=== PATIENT | male | born 1965 | race Caucasian/White ===

== ENCOUNTER 2023-07-18 08:08 | Emergency (ER) | payer OTHER, SELFPAY ==
[2023-07-18 08:17] VITALS: BP 149/105; PULSE 86; RESP 22; TEMP 37.8; O2SAT 97; BMI 33.4
--- NOTE | 2023-07-18 08:41 | CRLHL7_ITS ---
For Patients: As a result of the Cures Act, medical imaging exams and procedure reports are released immediately into your electronic medical record. You may view this report before your referring provider. If you have questions, please contact your health care provider. Indication: Cough and fever Comparison: None available. Technique: PA and lateral views of the chest Findings: There is no focal consolidation, effusion, or pneumothorax. The cardiomediastinal silhouette is within normal limits. The bony thorax is grossly intact. Impression: No acute cardiopulmonary abnormality. Dictated by Pipe Frankel MD @ 07/18/2023 9:45:45 AM (Electronically Signed)
--- NOTE | 2023-07-18 08:41 | CRLHL7_ITS ---
For Patients: As a result of the 21st Century Cures Act, medical imaging exams and procedure reports are released immediately into your electronic medical record. You may view this report before your referring provider. If you have questions, please contact your health care provider. INDICATION: Right-sided abdominal pain for 2 weeks with a history of Crohn`s disease COMPARISON: 01/30/2014 TECHNIQUE: CT of the abdomen and pelvis after the administration of intravenous contrast. Multiplanar axial, coronal, and sagittal reformats were reconstructed. Contrast: 128 mL Isovue 370 intravenously. Oral contrast was not administered. FINDINGS: Lung bases: Normal. Liver: Normal. No masses. Normal vasculature. Gallbladder and biliary tree: Normal gallbladder. No biliary duct dilation. Pancreas: Normal. Spleen: Globular spleen which is borderline enlarged and measures 15 cm in length. Spleen length is previously 12 cm. Adrenal glands: Normal. No nodules. Kidneys and bladder: Normal size and position. There is a 1.6 cm exophytic hyperdense renal mass arising from the right lower pole. This was previously present but much smaller, 0.7 cm. No calculi. No urinary tract dilation. Circumaortic left renal vein, a normal variant. The urinary bladder is normal. GI: Ileocolonic anastomosis is unremarkable. No dilated segments. No abnormal bowel wall thickening or hyperenhancement. Small stool burden. The appendix is surgically absent. Vessels: Aorta and major branches, including the mesenteric vessels: Patent. Normal caliber. No atherosclerotic plaques. IVC and tributaries: Normal. Mesenteric and portal veins: Normal. Peritoneum: No free fluid. Lymph nodes: Enlarged periportal lymph nodes. Lymph node between the IVC and main portal vein measures 1.6 x 2.8 cm. Another large lymph node between the bifurcation of the hepatic and splenic artery measures 2.6 x 1.4 cm.. Pelvis: Physiologic appearance of the pelvic organs. Bones: No fractures. No focal bone lesions. Normal for age. IMPRESSION: 1. No CT findings of active Crohn`s disease. 2. Borderline splenomegaly and nonspecific periportal adenopathy. 3. Enlarging 1.6 cm exophytic hyperdense right renal lesion. Could be a hyperdense cyst. This could be confirmed with ultrasound or renal mass protocol CT/MR. Please note that all CT scans at this facility use dose modulation, iterative reconstruction, and/or weight-based dosing when appropriate to reduce radiation dose to as low as reasonably achievable. Dictated by Destiny Rainey MD @ 07/18/2023 9:48:32 AM (Electronically Signed)
--- NOTE | 2023-07-18 08:43 | ED.GENADULT ---
HPI - General Adult General Time Seen by Provider: 08:43 Date Seen: 07/18/23 Chief complaint: Fever Stated complaint: fever,body aches x 2 weeks Time Seen by Provider: 07/18/23 08:21 History of Present Illness HPI narrative: This is a pleasant 57-year-old male with a history of Crohn's disease, previous surgical history including partial bowel resection for stricture/obstruction, temporary ileostomy with takedown, previous appendectomy, on chronic immunomodulatory therapy with Remicade. He presents to the ER today with his . He is here with symptoms of fever, chills, sweats, body aches that have been ongoing for about 14-17 days. Symptoms initially started along with some cough, dry mouth, mild sore throat. Cough has been persistent over the past 14 days. Largely productive of clear sputum or nonproductive. No. On sputum or hemoptysis. He is not short of breath. No chest pain. Also for about the past 2 weeks he has had some fairly bothersome right flank pain. No other definite symptoms with this. His was concerned the flank pain might indicate a recurrent bowel obstruction but he is not really having vomiting and bowel movements have been normal. Normal stools. Nonbloody. No diarrhea. No melena. He does not have much anterior abdominal pain he is not bloated. He has not had any rash or shingles. The patient notes that his son also was sick with cough and flank pain about 3 weeks ago. His son's illness ended spontaneously after about a week. The patient thought he would probably caught a virus from his son so has been trying to wait for his illness to get better. Since the cough was ongoing, perhaps slightly worsening, the fever and chills and sweats or ongoing, his insisted that he either make a doctor's appointment or come to the ER today. He chose to come to the ER. He has been doing at home COVID tests and they have been negative. Related Data Home Medications Medication Instructions Recorded Confirmed Remicade 07/18/23 allopurinol 300 mg tablet mg PO 07/18/23 Allergies Allergy/AdvReac Type Severity Reaction Status Date / Time No Known Drug Allergies Allergy Verified 07/18/23 09:29 PFSH PFS Social History Smoking Status: Unknown if ever smoked Non-prescribed substance use: denies use Exam Narrative: Exam Narrative: Constitutional: Appears well-developed and well-nourished. Alert. Conversant. Non toxic. His skin is somewhat sweaty from fever but not diaphoretic. No pallor cyanosis. HENT: Head: Atraumatic. Nose: Nose normal. Mouth/Throat: Oral mucosa is clear and moist. no trismus. Pharynx normal. Tonsils symmetric. No tonsillar enlargement, erythema, or exudate. Eyes: Conjunctivae normal. EOM normal. Pupils equal, round, and reactive to light. No scleral icterus. Neck: Normal range of motion. Neck supple. No tracheal deviation present. Cardiovascular: Normal rate, regular rhythm. No gallop. No friction rub. No murmur heard. Symmetric radial and DP artery pulses Pulmonary/Chest: Effort normal. No stridor. No respiratory distress. No wheezes. No rales. No rhonchi . No tenderness. Abdominal: Soft. Bowel sounds normal. No distension. No mass. No definite HSM. No pulsatile mass. No tenderness. No rebound. No guarding. No CVA tenderness. Musculoskeletal: RUE: Normal range of motion. No tenderness. No deformity LUE: Normal range of motion. No tenderness. No deformity RLE: Normal range of motion. No edema. No tenderness. No deformity LLE: Normal range of motion. No edema. No tenderness. No deformity Lymph: No cervical or supraclavicular adenopathy. Neurological: Alert and oriented to person, place, and time. Normal strength. CN II-VII intact. No sensory deficit. GCS eye subscore is 4. GCS verbal subscore is 5. GCS motor subscore is 6. Normal coordination Skin: Skin is warm and dry. No rash noted. No pallor. Normal capillary refill. Psychiatric: Normal mood. Normal affect. Const: Vital Signs, click to edit/add: Vital Signs - 24 hr 07/18/23 08:17 07/18/23 09:54 Temperature 100.1 F H 97.3 F L Pulse Rate [Right Pulse Oximeter] 86 73 Respiratory Rate 22 18 Blood Pressure [Ri ght Upper Arm] 149/105 H 144/92 H Pulse Oximetry 97 96 Oxygen Delivery Me thod Room Air Room Air Course Reevaluation(s) Reevaluation #1: recehck. VSS. sitting up. d/w patient and his . he feels stable to go home Vital Signs Vital signs: Initial Vital Signs Temperature 100.1 F H 07/18/23 08:17 Temperature Source Temporal Artery Scan 07/18/23 08:17 Pulse Rate 86 07/18/23 08:17 Respiratory Rate 22 07/18/23 08:17 Blood Pressure 149/105 H 07/18/23 08:17 Blood Pressure Mean 119 H 07/18/23 08:17 Blood Pressure Position Sitting 07/18/23 08:17 Pulse Oximetry 97 07/18/23 08:17 Oxygen Delivery Method Room Air 07/18/23 08:17 Vital Signs Temperature 100.1 F H 07/18/23 08:17 Pulse Rate 86 07/18/23 08:17 Respiratory Rate 22 07/18/23 08:17 Blood Pressure 149/105 H 07/18/23 08:17 Pulse Oximetry 97 07/18/23 08:17 Oxygen Delivery Method Room Air 07/18/23 08:17 Temperature 97.3 F L 07/18/23 09:54 Pulse Rate 73 07/18/23 09:54 Respiratory Rate 18 07/18/23 09:54 Blood Pressure 144/92 H 07/18/23 09:54 Pulse Oximetry 96 07/18/23 09:54 Oxygen Delivery Method Room Air 07/18/23 09:54 Medical Decision Making MDM Narrative Medical decision making narrative: This is a 57-year-old male with history of Crohn's disease, on immunomodulatory therapy with Humira who presents to the ER today with a 10-17 day history of fever, chills, body aches, and sweats. Also associated with cough (without shortness of breath or chest pain) and right flank pain (without abdominal distention, vomiting, diarrhea, or definite urinary symptoms). Differential is broad. In terms of cough he has had negative at home COVID test. COVID, influenza, RSV PCR is negative today. Chest x-ray negative for pneumonia. He is not hypoxic, having significant cough here in the ER, or having any respiratory distress. Lung sounds are clear. No evidence for CHF for COPD/asthma. In terms of his flank pain CT scan shows no evidence for obstructing kidney stone, Crohn's flare, colitis, diverticulitis, structural abnormality of or his liver. CT scan does show subtle splenomegaly. CT also shows a exophytic lesion on the right kidney. Discussed with the patient and his . They will follow-up for outpatient MRI for further characterization, urinalysis is normal. CBC shows mild leukopenia with a lymphocyte predominance with good fit with viral syndrome. Nasopharyngeal viral PCRs are negative here in the ER today. LFTs are mildly abnormal and he does have splenomegaly on CT, which raises concern for a mononucleosis syndrome. Monospot is negative. Will add on viral hepatitis serologies. No classic rash to suggest viral syndrome. No evidence for OM on exam. No pharyngitis. Differential for fever included cellulitis, septic arthritis, osteomyelitis but these are not seen on exam. Blood cultures are pending over patient is clinically nontoxic. Overall low suspicion for bacteremia or sepsis. The patient is smiling, alert, sitting up, and non-toxic, so I do not think sepsis or meningitis is present. At this point I do not think he needs empiric antibiotics or hospitalization. This fever is likely due to viral illness. Plan of care includes supportive care with antipyretics, fluids, and watchful waiting at home. Will need follow-up with primary care or in the ER within 2-4 days for follow-up lab test including LFTs, CBC, pending the results of his hepatitis-B serologies and blood cultures. Instructions to return for recheck in 2-4 days if not improved, or immediately if worsening fever, decreasing oral intake, lethargy, irritability, seizure, or any other concerns. Lab Data Labs: Lab Results 07/18/23 07/18/23 07/18/23 Range/Units 08:18 09:00 09:37 WBC 4.17 L (4.50-11.00) K/uL RBC 4.50 (4.30-5.90) m/uL Hgb 13.9 (13.5-17.5) gm/dL Hct 40.7 (37.0-53.0) % MCV 90 (80-100) fL MCH 31 (26-34) pg MCHC 34 (32-36) gm/dL RDW Coeff of Polina 12.9 (11.5-15.5) % Plt Count 146 (140-440) K/uL Neut % (Auto) 35.5 L (42.0-72.0) % Lymph % (Auto) 56.1 H (20-44) % [place] % (Auto) 7.2 (0.0-11.0) % Eos % (Auto) 0.2 (0.0-7.0) % Baso % (Auto) 0.5 (0.0-3.0) % Neut # (Auto) 1.50 L (1.7-7.0) K/uL Lymph # (Auto) 2.30 (0.90-2.90) K/uL [place] # (Auto) 0.30 (0.00-0.90) K/UL Eos # (Auto) 0.00 (0.00-0.50) K/uL Baso # (Auto) 0.00 (0.00-0.30) K/uL Abs Immat Gran (auto) 0.00 (0.00-0.30) K/uL Imm/Tot Granulo (auto) 0.5 % Sodium 131 L (135-149) mmol/L Potassium 4.7 (3.6-5.1) mmol/L Chloride 98 (96-114) mmol/L Carbon Dioxide 25 (20-32) mmol/L Anion Gap 8 (7-15) mEq/L BUN 12 (7-30) mg/dL Creatinine 0.7 (0.5-1.5) mg/dL Estimated Creat Clear 137.00 Estimated GFR 108 ml/min Glucose 210 H (60-115) mg/dL Lactate 1.6 (0.5-1.9) mmol/L Calcium 8.9 (8.4-10.6) mg/dL Total Bilirubin 1.5 (0.1-1.5) mg/dL AST 134 H (12-35) U/L ALT 128 H (4-50) U/L Alkaline Phosphatase 162 H (40-150) U/L Total Protein 7.3 (6.0-8.3) g/dL Albumin 4.1 (3.3-5.0) g/dL Lipase 165 (23-300) U/L Urine Color (Yellow) Urine Appearance (Clear) Urine pH (5.0-8.5) Ur Specific [place] (1.000-1.030) Urine Protein (Negative) Urine Glucose (UA) (Negative) Urine Ketones (Negative) Urine Blood (Negative) Urine Nitrite (Negative) Urine Bilirubin (Negative) Urine Urobilinogen (0.2-1.0) Ur Leukocyte Esterase (Negative) Urine RBC (0-2) Urine WBC (0-5) Ur Squamous Epith Cells (None-Few) Urine Bacteria (None) SARS-CoV-2 (PCR) Negative SARS-CoV-2 (Negative) Hep Bs Antigen Negative (Negative) Hepatitis C Antibody Negative (Negative) Monoscreen Negative (Negative) Influenza Type A (PCR) Negative PCR FLU A (Negative) Influenza Type B (PCR) Negative PCR FLU B (Negative) RSV (PCR) Negative PCR RSV (Negative) Lab Acknowledgement Test Added 07/18/23 07/18/23 Range/Units 10:35 11:40 WBC (4.50-11.00) K/uL RBC (4.30-5.90) m/uL Hgb (13.5-17.5) gm/dL Hct (37.0-53.0) % MCV (80-100) fL MCH (26-34) pg MCHC (32-36) gm/dL RDW Coeff of Polina (11.5-15.5) % Plt Count (140-440) K/uL Neut % (Auto) (42.0-72.0) % Lymph % (Auto) (20-44) % [place] % (Auto) (0.0-11.0) % Eos % (Auto) (0.0-7.0) % Baso % (Auto) (0.0-3.0) % Neut # (Auto) (1.7-7.0) K/uL Lymph # (Auto) (0.90-2.90) K/uL [place] # (Auto) (0.00-0.90) K/UL Eos # (Auto) (0.00-0.50) K/uL Baso # (Auto) (0.00-0.30) K/uL Abs Immat Gran (auto) (0.00-0.30) K/uL Imm/Tot Granulo (auto) % Sodium (135-149) mmol/L Potassium (3.6-5.1) mmol/L Chloride (96-114) mmol/L Carbon Dioxide (20-32) mmol/L Anion Gap (7-15) mEq/L BUN (7-30) mg/dL Creatinine (0.5-1.5) mg/dL Estimated Creat Clear Estimated GFR ml/min Glucose (60-115) mg/dL Lactate (0.5-1.9) mmol/L Calcium (8.4-10.6) mg/dL Total Bilirubin (0.1-1.5) mg/dL AST (12-35) U/L ALT (4-50) U/L Alkaline Phosphatase (40-150) U/L Total Protein (6.0-8.3) g/dL Albumin (3.3-5.0) g/dL Lipase (23-300) U/L Urine Color Yellow (Yellow) Urine Appearance Clear (Clear) Urine pH 6.0 (5.0-8.5) Ur Specific [place] <= 1.005 (1.000-1.030) Urine Protein Negative (Negative) Urine Glucose (UA) Negative (Negative) Urine Ketones Negative (Negative) Urine Blood Negative (Negative) Urine Nitrite Negative (Negative) Urine Bilirubin Negative (Negative) Urine Urobilinogen 0.2 (0.2-1.0) Ur Leukocyte Esterase Negative (Negative) Urine RBC 0-2 (0-2) Urine WBC 0-2 (0-5) Ur Squamous Epith Cells Few (None-Few) Urine Bacteria None (None) SARS-CoV-2 (PCR) (Negative) Hep Bs Antigen (Negative) Hepatitis C Antibody (Negative) Monoscreen (Negative) Influenza Type A (PCR) (Negative) Influenza Type B (PCR) (Negative) RSV (PCR) (Negative) Lab Acknowledgement Test Added Imaging Data Chest x-ray: Attestation: I have reviewed the pertinent imaging results. My impression: negative. Radiologist's impression: Impression: No acute cardiopulmonary abnormality. CT scan - abdomen: Attestation: I have reviewed the pertinent imaging results. Radiologist's impression: IMPRESSION: 1. No CT findings of active Crohn`s disease. 2. Borderline splenomegaly and nonspecific periportal adenopathy. 3. Enlarging 1.6 cm exophytic hyperdense right renal lesion. Could be a hyperdense cyst. This could be confirmed with ultrasound or renal mass protocol CT/MR. Discharge Plan Discharge Clinical Impression: Fever, Abnormal LFTs, Splenomegaly, Kidney lesion Patient Disposition: Home, Self-Care Condition: Stable Instructions: Fever in Adults (ED) Additional Instructions: At this time your workup is largely reassuring. We do see the you have mildly abnormal liver blood tests and a mildly enlarged spleen. Your blood counts suggest that your probably fighting off a viral syndrome, for instance like mono. However your mono test is negative. We have further viral tests running in the lab to look for hepatitis viruses. These will not come back today but should be back within 1-2 days. Please return to the ER right away if you have any worsening symptoms especially higher fever, worsening weakness, trouble breathing, abdominal pain, jaundice Please recheck with your regular doctor (or return to the ER) within 2-4 days to have follow-up lab tests such as this is blood count recheck, recheck of electrolytes and kidney function and liver function. The your CT scan today also shows that you have a small lesion on the outside of your right kidney. Please follow-up with your doctor to get a MRI of your kidney to be sure that this lesion is not cancer. However, the lesion is most likely a benign cyst Prescriptions: No Action allopurinol 300 mg tablet PO Remicade Follow Up/Referrals: Provider,Not a Local [Primary Care Provider] - Stand Alone Forms: Curse Info Instructions
[2023-07-18] MEDS: ACETAMINOPHEN 500 MG TABLET 1000 MG PO (08:45)
[2023-07-18] MEDS: 0.9 % SODIUM CHLORIDE 1000 ml 1,000 ML IV (09:00)
[2023-07-18 09:04] LABS: PCR FLU A Negative PCR FLU A (Negative); PCR FLU B Negative PCR FLU B (Negative); PCR RSV Negative PCR RSV (Negative)
[2023-07-18 09:08] LABS: SARS PCR* Negative SARS-CoV-2 (Negative)
[2023-07-18 09:22] LABS: Lactate* 1.6 mmol/L (0.5-1.9)
[2023-07-18 09:25] LABS: Basophils Percent Auto 0.5 % (0.0-3.0); Eosinophils Percent Auto 0.2 % (0.0-7.0); Hematocrit 40.7 % (37.0-53.0); Hemoglobin* 13.9 gm/dL (13.5-17.5); Immature Granulocytes Pct Auto 0.5 %; Lymphocytes Percent Auto 56.1 % (20-44); Mean Corpuscular HGB Conc 34 gm/dL (32-36); Mean Corpuscular Hemoglobin 31 pg (26-34); Mean Corpuscular Volume 90 fL (80-100); Monocytes Percent Auto 7.2 % (0.0-11.0); Neutrophils Percent Auto 35.5 % (42.0-72.0); Platelet Count* 146 K/uL (140-440); RDW Coefficient of Variation % 12.9 % (11.5-15.5); White Blood Count* 4.17 K/uL (4.50-11.00)
[2023-07-18 09:28] LABS: Slide Review Reflex No
[2023-07-18 09:49] LABS: Mono Screen* Negative (Negative)
[2023-07-18 09:54] VITALS: BP 144/92; PULSE 73; RESP 18; TEMP 36.3; O2SAT 96
[2023-07-18 09:55] LABS: Chloride* 98 mmol/L (96-114)
[2023-07-18 09:56] LABS: Albumin* 4.1 g/dL (3.3-5.0); Potassium* 4.7 mmol/L (3.6-5.1); Sodium* 131 mmol/L (135-149)
[2023-07-18 09:58] LABS: Creatinine* 0.7 mg/dL (0.5-1.5); Estimated Glomerular Filt Rate 108 ml/min
[2023-07-18 09:59] LABS: Alanine Aminotransferase* 128 U/L (4-50); Alkaline Phosphatase* 162 U/L (40-150); Anion Gap 8 mEq/L (7-15); Aspartate Amino Transferase* 134 U/L (12-35); Bilirubin Total* 1.5 mg/dL (0.1-1.5); Blood Urea Nitrogen* 12 mg/dL (7-30); Calcium* 8.9 mg/dL (8.4-10.6); Carbon Dioxide* 25 mmol/L (20-32); Glucose* 210 mg/dL (60-115); Lipase* 165 U/L (23-300); Total Protein* 7.3 g/dL (6.0-8.3)
[2023-07-18 10:44] LABS: Appearance Urine Clear (Clear); Bilirubin Urine Negative (Negative); Blood Urine Negative (Negative); Color Urine Yellow (Yellow); Glucose Urine Negative (Negative); Ketones Urine Negative (Negative); Leukocyte Esterase Urine Negative (Negative); Nitrite Urine Negative (Negative); Protein Urine Negative (Negative); Specific Gravity Urine <= 1.005 (1.000-1.030); Urobilinogen Urine 0.2 (0.2-1.0)
[2023-07-18 10:53] LABS: RBC Urine 0-2 (0-2); Squamous Epithelial Cell Urine Few (None-Few); WBC Urine 0-2 (0-5)
[2023-07-18 13:13] LABS: Hepatitis B Surface Antigen* Negative (Negative)
[2023-07-18 13:31] LABS: Hepatitis C Virus Antibody* Negative (Negative)
[2023-07-19 19:24] LABS: Hepatitis A Antibodies, Total Positive (Negative)
--- NOTE | 2023-07-20 11:21 | ED.NURSE ---
Patient's contacted ED a couple of times this AM. Reports difficulty in coordinating care for patient with follow ups needed. Made phone call to Sherri and did set up follow up appointment for tomorrow and pertinent details were sent to new provider through a message. Appointment details were then called to , [place].
== END 2023-07-18 12:07 | disposition home or self-care (01) ==
PROVIDERS: Emergency Provider Emergency Medicine
DX: R50.9 Fever, unspecified (principal); R16.1 Splenomegaly, not elsewhere classified; R94.5 Abnormal results of liver function studies
CPT/HCPCS: 36415; 71046; 74177; 80053; 81001; 83605; 83690; 85025; 86308; 86708; 86803; 87040; 87340; 87631; 99283; 99284; A9270; J7030; Q9967